=== PATIENT | female | born 1955 | race Hispanic/Latino ===

== ENCOUNTER 2018-01-16 10:17 | Emergency (ER) | payer BC ==
[2018-01-16 10:23] VITALS: RESP 18; O2SAT 99; BMI 25.0
--- NOTE | 2018-01-16 10:44 | ED PDOC ---
Arrival/HPI - General Chief Complaint: Trauma Time Seen by Provider: 01/16/18 10:23 Historian: Patient - History of Present Illness Narrative History of Present Illness (Text): 01/16/18 10:41 62-year-old female with a history of chronic alcohol abuse presents today status post fall. Patient states that she was going down the stairs to make guacamole and she slipped and fell down approximately 5 stairs. Patient states she hit her head. She is complaining of pain to the right shoulder. She denies numbness weakness or tingling in the extremities. Patient denies loss of consciousness with states she was not able to move for short period of time at the bottom of the stairs and her mother called 911. Patient denies headache dizziness or weakness. She denies neck or back pain. She denies chest pain abdominal pain. She denies nausea vomiting diarrhea constipation. Patient denies lower extremity pain. She denies bladder or bowel incontinence. Patient states she only has pain in the right shoulder. Past Medical History - Provider Review Nursing Documentation Reviewed: Yes - Travel History Have you recently traveled outside [place] w/in the past 3 mons?: No - Cardiac Hx Cardiac Disorders: Yes Hx Hypertension: Yes - Pulmonary Hx Respiratory Disorders: No - Neurological Hx Neurological Disorder: No - HEENT Hx HEENT Disorder: No - Renal Hx Renal Disorder: No - Endocrine/Metabolic Hx Endocrine Disorders: No - Hematological/Oncological Hx Blood Disorders: No - Integumentary Hx Dermatological Disorder: No - Musculoskeletal/Rheumatological Hx Musculoskeletal Disorders: No - Gastrointestinal Hx Gastrointestinal Disorders: No - Genitourinary/Gynecological Hx Genitourinary Disorders: No - Psychiatric Hx Psychophysiologic Disorder: Yes Hx Anxiety: Yes Hx Substance Use: No - Surgical History Hx Breast Biopsy: Yes Family/Social History - Physician Review Nursing Documentation Reviewed: Yes Family/Social History: Unknown Family HX Smoking Status: Heavy Smoker > 10 Cigarettes Daily Hx Alcohol Use: Yes Frequency of alcohol use: Daily Hx Substance Use: No Allergies/Home Meds Allergies/Adverse Reactions: Allergies Mycin Allergy (Uncoded 01/16/18 10:34) DIARRHEA Home Medications: Home Meds Medication Instructions Recorded Confirmed Unobtainable 01/16/18 01/16/18 Review of Systems - Review of Systems Constitutional: absent: Fatigue, Fevers Eyes: absent: Vision Changes, Photophobia, Eye Pain ENT: absent: Sore Throat, Sinus Congestion Respiratory: absent: SOB, Cough Cardiovascular: absent: Chest Pain, Palpitations Gastrointestinal: absent: Abdominal Pain, Constipation, Diarrhea, Nausea, Vomiting Genitourinary Female: absent: Dysuria, Frequency, Hematuria Musculoskeletal: Arthralgias (right shoulder pain). absent: Back Pain, Neck Pain Skin: absent: Rash, Pruritis, Laceration Neurological: absent: Headache, Dizziness Psychiatric: absent: Anxiety, Depression, Suicidal Ideation Physical Exam Vital Signs Reviewed: Yes Vital Signs Temp Pulse Resp BP Pulse Ox 01/16/18 10:22 98.3 F 80 18 169/88 H 99 Temperature: Afebrile Blood Pressure: Hypertensive Pulse: Regular Respiratory Rate: Normal Appearance: Positive for: Well-Appearing, Non-Toxic, Comfortable Pain Distress: None Mental Status: Positive for: Alert and Oriented X 3 - Systems Exam Head: Present: Atraumatic Pupils: Present: PERRL Extroacular Muscles: Present: EOMI Conjunctiva: Present: Normal Ears: Present: Normal, NORMAL TM Mouth: Present: Moist Mucous Membranes Neck: Present: Normal Range of Motion, Trachea Midline. No: MIDLINE TENDERNESS, Paraspinal Tenderness Respiratory/Chest: Present: Clear to Auscultation, Good Air Exchange. No: Respiratory Distress, Accessory Muscle Use Cardiovascular: Present: Regular Rate and Rhythm, Normal S1, S2. No: Murmurs Abdomen: Present: Other (no ecchymosis). No: Tenderness, Distention, Peritoneal Signs, Rebound, Guarding Back: Present: Normal Inspection, Other (no ecchymosis). No: Midline Tenderness, Paraspinal Tenderness Upper Extremity: Present: Normal ROM, Tenderness (right shoulder; + ttp over anterior aspect of shoulder; ), Neurovascularly Intact, Capillary Refill < 2s. No: Swelling, Erythema Lower Extremity: Present: Normal Inspection, NORMAL PULSES, Normal ROM, Neurovascularly Intact, Capillary Refill < 2 s, Other (pelvis stable; ). No: CALF TENDERNESS, Tenderness, Swelling, Erythema Neurological: Present: GCS=15, Speech Normal Skin: Present: Warm, Dry, Normal Color. No: Rashes Psychiatric: Present: Alert, Oriented x 3 Medical Decision Making ED Course and Treatment: 01/16/18 10:46 62yr old female with hx of etoh abuse presenting with fall down 5 stairs. rigid cervical collar ordered; pt has refused to wear the collar cbc: wnl cmp: wnl pt: wnl ptt: wnl ekg; sinus rhythm with fusion complexes a [address] elevations QTC 426 xray right shoulder; + clavicle fracture sling applied. head ct: FINDINGS: HEMORRHAGE: No intracranial hemorrhage. BRAIN: No mass effect or edema. No atrophy or chronic microvascular ischemic changes. VENTRICLES: Unremarkable. No hydrocephalus. CALVARIUM: Unremarkable. PARANASAL SINUSES: Unremarkable as visualized. No significant inflammatory changes. MASTOID AIR CELLS: Unremarkable as visualized. No inflammatory changes. OTHER FINDINGS: None. IMPRESSION: No acute intracranial findings cervical spine ct;FINDINGS: VERTEBRAE: No fracture. Normal alignment. No destructive bony lesion. DISCS/SPINAL CANAL/NEURAL FORAMINA: Foraminal stenosis is seen at C5-6 and C6-7 there is no central stenosis PARASPINAL SOFT TISSUES: Unremarkable. OTHER FINDINGS: None. IMPRESSION: No acute fracture pt has refused CT of chest abdomen and pelvis; pt states she has no pain and cant afford to pay for these tests; i have discussed the risk of bleeding with the patient in depth; i advised the patient we will check and alcohol level and she will remain in er until sober and then will have the patient sign out against medical advise. pt agrees with this plan. alcohol level checked off of original blood work from 11am. level 236. 01/16/18 17:59 pt reassessment; pt is alert and oriented. no toxic well appearing; no distress. vitals stable. pt was advised of fracture of right clavicle. pt is ambulating with steady gait in no distress. pt remains without cp without abdominal pain, without back pain. without n/v/d/c. pt has refused CT of the chest/abd/pelvis; pt has been observed in the ER for 9 hours; pt is clinically sober, ambulating with steady gait. alert and oriented, understands risks of refusing ct. pt states she doesn't have the money to pay for the test. Patient has been advised to not leave the emergency room but has decided to go AGAINST MEDICAL ADVICE. The patient possesses capacity to make decisions and has voiced understanding to all my warnings of potential worsening of the condition for which medical care was sought. I have discussed all known and potential risks and consequences to the patient leaving AGAINST MEDICAL ADVICE. Patient is leaving against medical advise. AMA form signed. witness by DANA araujo all aspects of this case were discussed the attending of record. impression; fall, clavicular fracture RETURN IF YOU WISH TO CONTINUE YOUR CARE. increase fluids follow up with the orthopedist within the next 2 days. follow up with the primary care physician within the next 2 days. return immediately if symptoms worsen,persist or if new symptoms develop: headaches, dizziness, weakness, abdominal pain, chest pain, vomiting, or if any other concerning symptoms develop. - RAD Interpretation Radiology Orders: 01/16/18 10:35 CHEST,ABD,PEL W/IV CONT ONLY [CT] Stat 01/16/18 10:36 HEAD W/O CONTRAST [CT] Stat CHEST PORTABLE [RAD] Stat 01/16/18 10:37 CERVICAL SPINE W/O CONTRAST [CT] Stat 01/16/18 10:38 SHOULDER RIGHT [RAD] Stat Disposition/Present on Arrival - Present on Arrival Any Indicators Present on Arrival: No History of DVT/PE: No History of Uncontrolled Diabetes: No Urinary Catheter: No History of Decub. Ulcer: No History Surgical Site Infection Following: None - Disposition Have Diagnosis and Disposition been Completed?: Yes Diagnosis: Fall, Clavicular fracture Disposition: AGAINST MEDICAL ADVICE Disposition Time: 18:11 Patient Plan: Other (AMA) Patient Problems: Current Active Problems Problem Status Onset Clavicular fracture Acute Fall Acute Condition: UNKNOWN Discharge Instructions (ExitCare): Clavicle Fracture Additional Instructions: RETURN IF YOU WISH TO CONTINUE YOUR CARE. increase fluids follow up with the orthopedist within the next 2 days. follow up with the primary care physician within the next 2 days. return immediately if symptoms worsen,persist or if new symptoms develop: headaches, dizziness, weakness, abdominal pain, chest pain, vomiting, or if any other concerning symptoms develop. Referrals: Latrice Iyer MD [Staff Provider] - Follow up with primary An Stone MD [Staff Provider] - Follow up with primary [facility] [Outside] - Follow up with primary [facility] [Outside] - Follow up with primary Forms: [employer] [facility] (Tongan), WORK NOTE
[2018-01-16 11:23] LABS: BASO # 0.02 K/mm3 (0.0-2.0); BASO % 0.2 % (0.0-3.0); EOS # 0.1 (0.0-0.7); GRAN # 4.13 (1.4-6.5); GRAN % 49.7 % (50.0-68.0); LYMPH # 3.4 (1.2-3.4); LYMPH % 40.4 % (22.0-35.0); MEAN CORPUSCULAR HEMOGLOBIN 34.9 pg (25.0-35.0); MEAN CORPUSCULAR HGB CONC 34.9 g/dl (31.0-37.0); MEAN PLATELET VOLUME 9.9 fl (7.0-11.0); MONO # 0.7 (0.1-0.6); MONO % 8.7 % (1.0-6.0); RBC 4.01 10^6/uL (3.5-6.1); WHITE BLOOD COUNT 8.3 10^3/uL (4.5-11.0)
[2018-01-16 11:27] LABS: INR 0.87; PARTIAL THROMBOPLASTIN TIME 31.5 Seconds (25.1-36.5)
[2018-01-16 11:33] LABS: ALB/GLOB RATIO 1.3 (1.1-1.8); ALBUMIN 3.9 g/dL (3.0-4.8); ALT/SGPT 28 U/L (7-56); AST/SGOT 30 U/L (14-36); BLOOD UREA NITROGEN 13 mg/dL (7-21); CALCIUM 8.9 mg/dL (8.4-10.5); GFR NON-AFRICAN AMERICAN > 60
--- NOTE | 2018-01-16 13:17 | CT ---
Date of service: 01/16/2018 PROCEDURE: CT HEAD WITHOUT CONTRAST. HISTORY: fall down stairs, COMPARISON: None available. TECHNIQUE: Axial computed tomography images were obtained through the head/brain without intravenous contrast. Radiation dose: Total exam DLP = 1613.14 mGy-cm. This CT exam was performed using one or more of the following dose reduction techniques: Automated exposure control, adjustment of the mA and/or kV according to patient size, and/or use of iterative reconstruction technique. FINDINGS: HEMORRHAGE: No intracranial hemorrhage. BRAIN: No mass effect or edema. No atrophy or chronic microvascular ischemic changes. VENTRICLES: Unremarkable. No hydrocephalus. CALVARIUM: Unremarkable. PARANASAL SINUSES: Unremarkable as visualized. No significant inflammatory changes. MASTOID AIR CELLS: Unremarkable as visualized. No inflammatory changes. OTHER FINDINGS: None. IMPRESSION: No acute intracranial findings
--- NOTE | 2018-01-16 13:22 | CT ---
Date of service: 01/16/2018 PROCEDURE: CT Cervical Spine without contrast HISTORY: fall down stairs COMPARISON: None available. TECHNIQUE: Axial computed tomography images were obtained of the cervical spine without the use of intravenous contrast. Coronal and sagittal reformatted images were created and reviewed. Radiation dose: Total exam DLP = 467.07 mGy-cm. This CT exam was performed using one or more of the following dose reduction techniques: Automated exposure control, adjustment of the mA and/or kV according to patient size, and/or use of iterative reconstruction technique. FINDINGS: VERTEBRAE: No fracture. Normal alignment. No destructive bony lesion. DISCS/SPINAL CANAL/NEURAL FORAMINA: Foraminal stenosis is seen at C5-6 and C6-7 there is no central stenosis PARASPINAL SOFT TISSUES: Unremarkable. OTHER FINDINGS: None. IMPRESSION: No acute fracture
--- NOTE | 2018-01-16 13:29 | RAD ---
Date of service: 01/16/2018 PROCEDURE: CHEST RADIOGRAPH, 1 VIEW HISTORY: fall down stairs COMPARISON: None available. FINDINGS: LUNGS: Clear. PLEURA: No pneumothorax or pleural fluid seen. CARDIOVASCULAR: Normal. OSSEOUS STRUCTURES: No significant abnormalities. VISUALIZED UPPER ABDOMEN: Normal. OTHER FINDINGS: None. IMPRESSION: No active disease.
--- NOTE | 2018-01-16 13:30 | RAD ---
Date of service: 01/16/2018 PROCEDURE: Radiographs of the Right Shoulder HISTORY: fall, pain COMPARISON: No prior. FINDINGS: BONES: There is a minimally displaced fracture of the distal clavicle along its superior surface. JOINTS: Normal. Glenohumeral and acromioclavicular joints preserved. No osteoarthritis. SOFT TISSUES: Normal. OTHER FINDINGS: None. IMPRESSION: There is a minimally displaced fracture of the distal clavicle along its superior surface.
--- NOTE | 2018-01-16 16:14 | CARD ---
APPROVED REPORT Date of service: 01/16/2018 EKG Measurement Heart [id number] <Conclusion> Sinus rhythm with fusion complexes Cannot rule out Anterior infarct, age undetermined Abnormal ECG
[2018-01-16 19:35] VITALS: BP 139/78; PULSE 82; TEMP 98
== END 2018-01-16 19:34 | disposition left against medical advice (07) ==
LOC: EDBD → ED 10:17
DX: S42.001A Fracture of unspecified part of right clavicle, initial encounter for closed fracture (principal); W10.9XXA Fall (on) (from) unspecified stairs and steps, initial encounter; I10 Essential (primary) hypertension; F17.210 Nicotine dependence, cigarettes, uncomplicated
CPT/HCPCS: 70450; 71045; 72125; 73030; 80053; 85025; 85610; 85730; 93005; 99285; G0480